=== PATIENT | female | born 2000 | race Caucasian/White ===

== ENCOUNTER 2023-10-27 08:49 | Emergency (ER) | payer OTHER ==
[2023-10-27] MEDS ORDERED: Metoclopramide HCl 10 MG (2 mL) VIAL ONE (09:33)
[2023-10-27] MEDS ORDERED: diphenhydrAMINE 50 MG/ML VIAL ONE (09:33)
[2023-10-27] MEDS ORDERED: Ketorolac Tromethamine 30 MG (1 mL) VIAL ONE (09:34)
== END 2023-10-27 10:57 | disposition home or self-care (01) ==
LOC: CSHERS 08:49
DX: R51.9 Headache, unspecified (principal)
CPT/HCPCS: 70450; 96374; 96375; J1200; J1885; J2765